=== PATIENT | male | born 1960 | race Caucasian/White ===

== ENCOUNTER 2017-06-22 01:31 | Observation (INO) | payer OTHER ==
[2017-06-22] VITALS (10 sets, daily range): BP systolic 147–197; BP diastolic 68–98; PULSE 57–65; RESP 18–20; TEMP 97.9–98.8; O2SAT 93–100
[2017-06-22 02:39] LABS: ALKALINE PHOSPHATASE 63 U/L (45-117); TOTAL BILIRUBIN ADULT 0.3 MG/DL (0.2-1.0)
[2017-06-22 02:42] LABS: ALT (GPT) 37 U/L (12-78); ANION GAP 9 MEQ/L (5-15); AST (GOT) 29 U/L (15-37); BICARBONATE 26.5 MEQ/L (21.0-32.0); BLOOD UREA NITROGEN 22 MG/DL (7-18); CHLORIDE 107 MEQ/L (98-107); GLOMERULAR FILTRATION RATE 71 ML/MIN (>89); POTASSIUM 3.7 MEQ/L (3.5-5.1); SODIUM (NA) 142 MEQ/L (136-145)
[2017-06-22 02:43] LABS: AUTOMATED NEUTROPHIL # 12.6 TH/MM3 (1.8-7.7); BASOPHIL # 0.1 TH/MM3 (0-0.2); BASOPHIL % 0.4 % (0.0-2.0); EOSINOPHIL % 0.1 % (0.0-4.0); HEMATOCRIT 44.5 % (39.0-51.0); HEMO FLAGS DIFF FINAL; LYMPH % 9.7 % (9.0-44.0); LYMPHOCYTE # 1.5 TH/MM3 (1.0-4.8); MEAN CELL VOLUME 90.1 FL (80.0-100.0); MEAN CORPUSCULAR HEMOGLOBIN 30.6 PG (27.0-34.0); MEAN CORPUSCULAR HGB CONC 33.9 % (32.0-36.0); MONO % 8.1 % (0.0-8.0); NEUT % 81.7 % (16.0-70.0); PLATELET COUNT 182 TH/MM3 (150-450); RED BLOOD COUNT 4.93 MIL/MM3 (4.50-5.90); RED CELL DISTRIBUTION WIDTH 13.4 % (11.6-17.2); WHITE BLOOD COUNT 15.4 TH/MM3 (4.0-11.0)
--- NOTE | 2017-06-22 02:59 | PD ---
HPI Chief Complaint: Flank/Kidney Pain Time Seen by Provider: 02:33 Travel History International Travel<30 days: No Contact w/Intl Traveler<30days: No Traveled to known affect area: No History of Present Illness HPI The patient is a 56 year old male who presents to the [facility] emergency department with a history of chest pain that radiates into his flanks that began at 10:30PM suddenly. He drank water and took tums without relief. The pain is a tight sensation in his chest and a pressure sensation in his back. He reports a history of hypertension. It was drinking alcohol this evening. He had 6-7 drinks this evening. He developed associated cough and congestion tonight. He is coughing up a white to louis mucus. He last had a stress test done years ago. He last used cocaine two months ago. He reports that he smokes 2ppd and drinks alcohol 1 x per week. He denies taking any blood pressure medication. He denies any known history of hyperlipidemia or diabetes. He denies any prior history of heart disease. He denies any FH of CAD. On review of systems otherwise, the patient denies having any known recent fevers, neck pain, cabdominal pain, vomiting, diarrhea, urinary symptoms, or neurologic symptoms. PCP: Dr. Amadou Rivero. He last saw Dr. Rivero years ago. [facility] Past Medical History Narrative Medical The patient's past medical history is significant for gout, htn. Gout: Yes Hypertension: Yes Tetanus Vaccination: > 5 Years Influenza Vaccination: No Past Surgical History Narrative Surgical The patient's past surgical history is significant for left knee surgery. Social History Alcohol Use: Yes (1 time per week.) Tobacco Use: Yes (2 packs per day) Substance Use: Yes (cocaine last 2 months ago.) Allergies-Medications (Allergen,Severity, Reaction): Coded Allergies: No Known Allergies (Unverified , 06/22/17) Reported Meds & Prescriptions Reported Meds & Active Scripts Active No Active Prescriptions or Reported Medications Review of Systems Except as stated in HPI: all other systems reviewed are Neg General / Constitutional: Positive: Chills, No: Fever Eyes: No: Visual changes HENT: Positive: Congestion, No: Headaches Cardiovascular: Positive: Chest Pain or Discomfort Respiratory: Positive: Cough, Shortness of Breath Gastrointestinal: No: Nausea, Vomiting, Diarrhea, Abdominal Pain, Hematochezia , Changes in Bowel Habits (last BM this AM) Genitourinary: No: Urgency, Frequency, Dysuria, Hematuria Musculoskeletal: No: Pain Skin: No Rash Neurologic: No: Weakness, Focal Abnormalities, Change in Mentation, Slurred Speech, Sensory Disturbance Psychiatric: No: Depression Endocrine: No: Polydipsia Hematologic/Lymphatic: No: Easy Bruising Physical Exam Narrative General: The patient is a well-developed well-nourished male in no acute distress. Head and Neck exam: Head is normocephalic atraumatic. Eyes: EOMI, pupils are equal round and reactive to light. Nose: Midline septum with pink mucous membranes Mouth: Dentition unremarkable. Moist mucus membranes. Posterior oropharynx is not erythematous. No tonsillar hypertrophy. Uvula midline. Airway patent. Neck: No palpable lymphadenopathy. No nuchal rigidity. No thyromegaly. Cardiovascular: Regular rate and rhythm without murmurs, gallops, or rubs. Lungs: Clear to auscultation bilaterally. No wheezes, rhonchi, or rales. Abdomen: Soft, without tenderness to palpation in all 4 quadrants of the abdomen. No guarding, rebound, or rigidity. Normal bowel sounds are audible. No tenderness on palpation of McBurney's point. Negative Solorio's sign. Extremities: No clubbing, cyanosis, or edema. 2+ pulses in all 4 extremities. No calf tenderness on palpation. Back: No spinous process tenderness to palpation. The patient reports having bilateral CVA tenderness on palpation worse on the left compared to the right. Neurologic Exam: Grossly nonfocal. Skin Exam: No rash noted. Intact skin that is warm and dry. Data Data Last Documented VS Vital Signs Date Time Temp Pulse Resp B/P (MAP) Pulse Ox O2 Delivery O2 Flow Rate FiO2 06/22/17 03:45 57 20 194/98 (130) 97 Room Air 06/22/17 01:55 98.8 Orders Orders Urinalysis - C+S If Indicated (06/22/17 01:46) Complete Blood Count With Diff (06/22/17 01:46) Comprehensive Metabolic Panel (06/22/17 01:46) Iv Access Insert/Monitor (06/22/17 01:46) Oxygen Administration (06/22/17 01:46) Oximetry (06/22/17 01:46) Lipase (06/22/17 01:46) Electrocardiogram (06/22/17 02:34) Creatine Kinase (Cpk) (06/22/17 02:34) Ckmb (Isoenzyme) Profile (06/22/17 02:34) Troponin I (06/22/17 02:34) B-Type Natriuretic Peptide (06/22/17 02:34) Ct Abd/Pel W/O Iv Contrast (06/22/17 02:34) Sodium Chlor 0.9% 1000 Ml Inj (Ns 1000 M (06/22/17 03:15) Morphine Inj (Morphine Inj) (06/22/17 03:15) Ondansetron Inj (Zofran Inj) (06/22/17 03:15) Nitroglycerin 2% Oint (Nitroglycerin 2% (06/22/17 03:15) Aspirin Chew (Aspirin Chew) (06/22/17 03:15) Pantoprazole Inj (Protonix Inj) (06/22/17 03:15) Chest, Single Ap (06/22/17 03:03) CKMB (06/22/17 03:00) CKMB% (06/22/17 03:00) Admit Order (Ed Use Only) (06/22/17 04:06) Labs Laboratory Tests Test 06/22/17 01:50 06/22/17 02:30 06/22/17 03:00 Blood Urea Nitrogen 22 MG/DL Creatinine 1.07 MG/DL Random Glucose 114 MG/DL Total Protein 7.4 GM/DL Albumin 3.7 GM/DL Calcium Level 8.2 MG/DL Alkaline Phosphatase 63 U/L Aspartate Amino Transf (AST/SGOT) 29 U/L Alanine Aminotransferase (ALT/SGPT) 37 U/L Total Bilirubin 0.3 MG/DL Sodium Level 142 MEQ/L Potassium Level 3.7 MEQ/L Chloride Level 107 MEQ/L Carbon Dioxide Level 26.5 MEQ/L Anion Gap 9 MEQ/L Estimat Glomerular Filtration Rate 71 ML/MIN Lipase 101 U/L White Blood Count 15.4 TH/MM3 Red Blood Count 4.93 MIL/MM3 Hemoglobin 15.1 GM/DL Hematocrit 44.5 % Mean Corpuscular Volume 90.1 FL Mean Corpuscular Hemoglobin 30.6 PG Mean Corpuscular Hemoglobin Concent 33.9 % Red Cell Distribution Width 13.4 % Platelet Count 182 TH/MM3 Mean Platelet Volume 8.0 FL Neutrophils (%) (Auto) 81.7 % Lymphocytes (%) (Auto) 9.7 % Monocytes (%) (Auto) 8.1 % Eosinophils (%) (Auto) 0.1 % Basophils (%) (Auto) 0.4 % Neutrophils # (Auto) 12.6 TH/MM3 Lymphocytes # (Auto) 1.5 TH/MM3 Monocytes # (Auto) 1.2 TH/MM3 Eosinophils # (Auto) 0.0 TH/MM3 Basophils # (Auto) 0.1 TH/MM3 CBC Comment DIFF FINAL Differential Comment Total Creatine Kinase 410 U/L Creatine Kinase MB 7.4 NG/ML Creatine Kinase MB % 1.8 % Troponin I LESS THAN 0.02 NG/ML B-Type Natriuretic Peptide 11 PG/ML MDM Medical Decision Making Medical Screen Exam Complete: Yes Emergency Medical Condition: Yes Medical Record Reviewed: Yes Interpretation(s) Last Impressions Chest X-Ray 06/22/17 0303 Signed Impressions: Service Date/Time: Thursday, June 22, 2017 03:23 - CONCLUSION: No evidence of acute cardiopulmonary disease. Chencho Rodriguez MD Abdomen/Pelvis CT 06/22/17 0234 Signed Impressions: Service Date/Time: Thursday, June 22, 2017 03:15 - CONCLUSION: 1. No stones , obstructive uropathy or other acute abnormality. 2. Mild sigmoid colon diverticulosis without diverticulitis. Chencho Rodriguez MD Differential Diagnosis Kidney stone, versus pyelonephritis, versus pancreatitis, versus abdominal aortic aneurysm, versus dissecting aorta, versus acute coronary syndrome Narrative Course During the course of the patients emergency department visit, the patients history, examination, and differential diagnosis were reviewed with the patient. The patient had IV access obtained and blood work sent for analysis. The patient was placed on a quality systems engineer with oximetry and blood pressure monitoring. An ECG was done on arrival. The patient's ECG shows a sinus rhythm with sinus arrhythmia with a heart rate of 60, no acute ST segment elevation or depression, T waves are inverted in V1. QRS duration and 97 ms, QTC 411 ms. The patient was initially provided Protonix 40 mg IV, aspirin 324 mg by mouth 1 , nitroglycerin 1 inch of paste to the chest wall, morphine 4 mg IV, Zofran 4 mg IV. Normal saline was started at 1 L IV fluid bolus. The patients laboratory studies were reviewed and remarkable for a white count of 15.4, hemoglobin 15.1, platelets 182 with 81.7 neutrophils, monocytes 8.1. CMP is remarkable for a BUN of 22, glucose 114, lipase 101, CPK 410, MB percent 1.8, troponin I less than 0.02. Urinalysis is unremarkable, urine drug screen is positive for opiates, alcohol level less than 3 Radiology studies were reviewed and remarkable for a chest x-ray that shows no evidence of acute cardiopulmonary disease, CT scan of the abdomen and pelvis shows no stones or obstructive uropathy or other acute abnormality, mild sigmoid colon diverticulosis without diverticulitis. Normal-appearing aorta. The patients results were discussed with the patient, including the plan of care. I explained that further testing and/ or monitoring is indicated based on the patients history, examination, and/ or laboratory findings. Therefore, I recommended admission for additional evaluation. The patient expressed understanding and was agreeable with this plan. The patient was admitted to the hospital in stable condition and sent to a bed under the care of the chest pain center. Diagnosis Primary Impression: Chest pain, rule out acute myocardial infarction Admitting Information Admitting Physician Requests: Observation Scripts No Active Prescriptions or Reported Meds Nayeli Webb MD Jun 22, 2017 02:59
[2017-06-22] MEDS ORDERED: SODIUM CHLOR 0.9% 1000 ML INJ 1,000 ML IV ONE (03:15)
[2017-06-22] MEDS ORDERED: ONDANSETRON HCL 4 MG/2 ML VIAL IV PUSH ONE (03:15)
[2017-06-22] MEDS ORDERED: ASPIRIN 81 MG CHEW TAB CHEW ONE (03:15)
[2017-06-22] MEDS ORDERED: MORPHINE SULFATE 4 MG/ML INJ IV PUSH ONE (03:15)
[2017-06-22] MEDS ORDERED: PANTOPRAZOLE SODIUM 40 MG VIAL IV PUSH ONE (03:15)
[2017-06-22] MEDS ORDERED: NITROGLYCERIN 2% OINT 1 GM PACKET TOPICAL ONE (03:15)
[2017-06-22 03:39] LABS: CREATINE KINASE 410 U/L (39-308)
--- NOTE | 2017-06-22 03:41 | RADRPT ---
EXAM DATE/TIME: 06/22/2017 03:15 [facility] COMPARISON: No previous studies available for comparison. INDICATIONS : Bilateral flank pain. ORAL CONTRAST: No oral contrast ingested. RADIATION DOSE: 13.04 CTDIvol (mGy) MEDICAL HISTORY : Hypertension. Gout. SURGICAL HISTORY : None. ENCOUNTER: Initial ACUITY: 1 day PAIN SCALE: 10/10 LOCATION: Bilateral flank TECHNIQUE: Volumetric scanning of the abdomen and pelvis was performed. Using automated exposure control and ad justment of the mA and/or kV according to patient size, radiation dose was kept as low as reasonably achievable to obtain optimal diagnostic quality images. DICOM format image data is available electro nically for review and comparison. FINDINGS: LOWER LUNGS: The visualized lower lungs are clear. LIVER: Homogeneous density without lesion. There is no dilation of the biliary tree. No calcified gallston es. SPLEEN: Normal size without lesion. PANCREAS: Within normal limits. KIDNEYS: Normal in size and shape. There is no mass, stone, or hydronephrosis. ADRENAL GLANDS: Within normal limits. VASCULAR: There is no aortic aneurysm. BOWEL/MESENTERY: There is mild diverticulosis of the sigmoid colon. No inflammatory changes are demonstrated. No bowel obstruction. Appendix is well-visualized, normal. There is no free fluid or free air. ABDOMINAL WALL: Within normal limits. RETROPERITONEUM: There is no lymphadenopathy. BLADDER: No wall thickening or mass. REPRODUCTIVE: Within normal limits. INGUINAL: There is no lymphadenopathy or hernia. MUSCULOSKELETAL: No acute bony abnormality demonstrated. CONCLUSION: 1. No stones, obstructive uropathy or other acute abnormality. 2. Mild sigmoid colon diverticulosis without diverticulitis. Chencho Rodriguez MD on June 22, 2017 at 3:36 Board Certified Radiologist. This report was verified electronically.
--- NOTE | 2017-06-22 03:41 | RADRPT ---
EXAM DATE/TIME: 06/22/2017 03:23 [facility] COMPARISON: No previous studies available for comparison. INDICATIONS : Short of breath. MEDICAL HISTORY : None. SURGICAL HISTORY : None. ENCOUNTER: Initial ACUITY: 1 day PAIN SCORE: 0/10 LOCATION: Bilateral chest FINDINGS: A single view of the chest demonstrates the lungs to be symmetrically aerated without evidence of mas s, infiltrate or effusion. The cardiomediastinal contours are unremarkable. Osseous structures are intact. CONCLUSION: No evidence of acute cardiopulmonary disease. Chencho Rodriguez MD on June 22, 2017 at 3:40 Board Certified Radiologist. This report was verified electronically.
[2017-06-22 03:51] LABS: CKMB 7.4 NG/ML (0.5-3.6)
[2017-06-22] MEDS ORDERED: SODIUM CHLORIDE 0.9% FLUSH 10 ML FLUSH IV FLUSH PRN (04:45)
[2017-06-22] MEDS ORDERED: ONDANSETRON HCL 4 MG/2 ML VIAL IV PUSH PRN (04:45)
[2017-06-22] MEDS ORDERED: ACETAMINOPHEN/HYDROcodone 325 MG/7.5 MG TAB PO PRN (04:45)
[2017-06-22] MEDS ORDERED: LORazepam 2 MG/ML VIAL IV PUSH ONE (06:00)
[2017-06-22 06:28] LABS: BLOOD, URINE TRACE (NEG); COMMENT (UR) CULT NOT INDICATED; CULTURE IF INDICATED CULT NOT INDICATED; GLUCOSE,URINE NEG (NEG); HYALINE CAST, URINE 7 /lpf (RARE); KETONE, URINE NEG (NEG); MUCUS URINE FEW /lpf (OCC); NITRITE,URINE NEG (NEG); PH, URINE 5.5 (5.0-8.5); URINE COLOR YELLOW (YELLW/STRAW)
[2017-06-22 06:44] LABS: CKMB 6.7 NG/ML (0.5-3.6)
[2017-06-22] MEDS ORDERED: cloNIDine HCL 0.1 MG TAB PO ONE (08:00)
--- NOTE | 2017-06-22 08:16 | HHI.HP ---
HPI Primary Care Physician No Primary Care Physician Chief Complaint Chest pain History of Present Illness This is a 56-year-old male that presents to ED via ambulance with a complaint of chest discomfort. States it began 10:30 last evening while drinking at a bar. He states he was bar hopping throughout the evening. Estimates he had at least 3-4 shots of vodka and at least 4-6 beers. Describes the discomfort as a pressure in the center of his chest without radiation. Maybe a little shortness of breath. No nausea or vomiting. No diaphoresis. He has had a cough but states he has had that for a long time and to reset to smoking 2 pack of cigarettes daily. His cough is been nonproductive. No fevers or chills. Denies abdominal pain. Denies recent illness. Denies recent travel. Denies history of CAD. States he had a stress test many years ago. His PCP is Dr. Rviero however he states he has not seen him in quite some time. States at one time he was told he had borderline hypertension but cannot recall ever being placed on medication. (Cayetano Sanchez) Review of Systems General: Patient denies fevers, chills recent, and recent travel HEENT: Patient denies headache, sore throat, difficulty swallowing. Cardiovascular: Has the chest discomfort as mentioned above. Denies sensation of heart beating rapidly or irregularly. No syncope. Denies diaphoresis. Respiratory: He was little short of breath initially. Denies inspirational chest discomfort. States he has had a chronic nonproductive cough for as long as he remembers, states it is his smoker's cough. GI: Patient denies nausea, vomiting, diarrhea, abdominal pain, bloody stools. Musculoskeletal: Patient denies joint pain or edema. Denies calf pain or edema. Neurovascular: Patient denies numbness, tingling, weakness in extremities. Denies headache. Endocrine: Denies polyuria and polydipsia. Hematologic: Denies easy bruising. Skin: Denies rash or itching. (Cayetano Sanchez) Past Family Social History Allergies: Coded Allergies: No Known Allergies (Unverified , 06/22/17) Past Medical History Tobacco abuse. States he was told he had borderline hypertension but was never prescribed medication. Denies hyperlipidemia diabetes and known CAD. Past Surgical History Knee surgery. Reported Medications Reported Meds & Active Scripts Active No Active Prescriptions or Reported Medications Active Ordered Medications Current Medications Medications (Trade) Dose Ordered Sig/Mariana Route Start Time Stop Time Status Last Admin (NS Flush) 2 ml UNSCH PRN IV FLUSH 06/22/17 04:45 (NS Flush) 2 ml BID IV FLUSH 06/22/17 09:00 ([place] 7.5-325 Mg) 1 tab Q4H PRN PO 06/22/17 04:45 06/22/17 06:15 (Zofran Inj) 4 mg Q6H PRN IV PUSH 06/22/17 04:45 (Protonix) 40 mg DAILY PO 06/22/17 09:00 (Catapres) 0.1 mg NOW ONCE PO 06/22/17 08:00 06/22/17 08:01 UNV Family History Denies family history of CAD. Social History Smokes 2 packs a day for more than 30 years. States he drinks alcohol when he feels like it. It can be once a week once a month, no pattern. He admits to drinking at least 4 vodkas last night at least 4-6 beers last night. Denies illicit drug use. (Cayetano Sanchez) Physical Exam Vital Signs Vital Signs Date Time Temp Pulse Resp B/P (MAP) Pulse Ox O2 Delivery O2 Flow Rate FiO2 06/22/17 07:32 57 18 06/22/17 07:32 59 18 170/75 (106) 96 06/22/17 06:33 59 20 170/75 (106) 98 Nasal Cannula 2.00 06/22/17 05:48 100 Nasal Cannula 2.00 06/22/17 05:48 63 20 195/68 (110) 100 Nasal Cannula 2.00 06/22/17 05:00 21 06/22/17 03:45 57 20 194/98 (130) 97 Room Air 06/22/17 03:25 61 20 197/97 (130) 100 Room Air 06/22/17 02:01 20 06/22/17 01:55 98.8 62 20 177/78 (111) 06/22/17 01:54 20 99 Room Air Physical Exam GENERAL: This is a well-nourished, well-developed patient, in no apparent distress. Patient speaks in clear complete sentences. Patient is pleasant. HEENT: Head is atraumatic and normocephalic. Neck is supple without lymphadenopathy and trachea is midline. No JVD or carotid bruits. CARDIOVASCULAR: Regular rate and rhythm without murmurs, gallops, or rubs. RESPIRATORY: Clear to auscultation. Breath sounds equal bilaterally. No wheezes , rales, or rhonchi. Chest wall is tender over the sternum which reproduces and worsens the discomfort he has been having since last evening. No use of accessory muscles. GASTROINTESTINAL: Abdomen is nontender, nondistended. Abdomen soft. No obvious pulsatile mass or bruit. No CVA tenderness. Strong femoral pulses bilaterally. Normal bowel sounds in all quadrants. MUSCULOSKELETAL: Patient is moving upper and lower extremities freely. No calf tenderness or edema, no Homans sign. Strong pulses in upper and lower extremities. NEUROLOGICAL: Patient is alert and oriented. Cranial nerves 2-12 are grossly intact. No focal deficits and speech is clear. SKIN: No rash and turgor is normal. Laboratory Laboratory Tests Test 06/22/17 01:50 06/22/17 02:30 06/22/17 03:00 06/22/17 05:35 Blood Urea Nitrogen 22 Creatinine 1.07 Random Glucose 114 Total Protein 7.4 Albumin 3.7 Calcium Level 8.2 Alkaline Phosphatase 63 Aspartate Amino Transf (AST/SGOT) 29 Alanine Aminotransferase (ALT/SGPT) 37 Total Bilirubin 0.3 Sodium Level 142 Potassium Level 3.7 Chloride Level 107 Carbon Dioxide Level 26.5 Anion Gap 9 Estimat Glomerular Filtration Rate 71 Lipase 101 White Blood Count 15.4 Red Blood Count 4.93 Hemoglobin 15.1 Hematocrit 44.5 Mean Corpuscular Volume 90.1 Mean Corpuscular Hemoglobin 30.6 Mean Corpuscular Hemoglobin Concent 33.9 Red Cell Distribution Width 13.4 Platelet Count 182 Mean Platelet Volume 8.0 Neutrophils (%) (Auto) 81.7 Lymphocytes (%) (Auto) 9.7 Monocytes (%) (Auto) 8.1 Eosinophils (%) (Auto) 0.1 Basophils (%) (Auto) 0.4 Neutrophils # (Auto) 12.6 Lymphocytes # (Auto) 1.5 Monocytes # (Auto) 1.2 Eosinophils # (Auto) 0.0 Basophils # (Auto) 0.1 CBC Comment DIFF FINAL Differential Comment Total Creatine Kinase 410 359 Creatine Kinase MB 7.4 6.7 Creatine Kinase MB % 1.8 1.9 Troponin I LESS THAN 0.02 0.02 B-Type Natriuretic Peptide 11 Ethyl Alcohol Level LESS THAN 3 Test 06/22/17 05:55 06/22/17 06:30 Urine Color YELLOW Urine Turbidity CLEAR Urine pH 5.5 Urine Specific [place] 1.027 Urine Protein TRACE Urine Glucose (UA) NEG Urine Ketones NEG Urine Occult Blood TRACE Urine Nitrite NEG Urine Bilirubin NEG Urine Urobilinogen LESS THAN 2.0 Urine Leukocyte Esterase NEG Urine RBC 3 Urine WBC 4 Urine Hyaline Casts 7 Urine Mucus FEW Microscopic Urinalysis Comment CULT NOT INDICATED Urine Opiates Screen POS Urine Barbiturates Screen NEG Urine Amphetamines Screen NEG Urine Benzodiazepines Screen NEG Urine Cocaine Screen NEG Urine Cannabinoids Screen NEG (Cayetano Sanchez) Result Diagram: 06/22/17 0230 06/22/17 0150 Imaging Last 48 hours Impressions Chest X-Ray 06/22/17 0303 Signed Impressions: Service Date/Time: Thursday, June 22, 2017 03:23 - CONCLUSION: No evidence of acute cardiopulmonary disease. Chencho Rodriguez MD Abdomen/Pelvis CT 06/22/17 0234 Signed Impressions: Service Date/Time: Thursday, June 22, 2017 03:15 - CONCLUSION: 1. No stones , obstructive uropathy or other acute abnormality. 2. Mild sigmoid colon diverticulosis without diverticulitis. Chencho Rodriguez MD Course EKGs have sinus bradycardia to sinus arrhythmia without significant ST segment depressions or elevations. (Cayetano Sanchez) Caprini VTE Risk Assessment Caprini VTE Risk Assessment: No/Low Risk (score <= 1) Caprini Risk Assessment Model Point Value = 1 Point Value = 2 Point Value = 3 Point Value = 5 Age 41-60 Minor surgery BMI > 25 kg/m2 Swollen legs Varicose veins or History of unexplained or recurrent spontaneous Oral contraceptives or hormone replacement Sepsis (< 1 month) Serious lung disease, including pneumonia (< 1 month) Abnormal pulmonary function Acute myocardial infarction Congestive heart failure (< 1 month) History of inflammatory bowel disease Medical patient at bed rest Age 61-74 Arthroscopic surgery Major open surgery (> 45 min) Laparoscopic surgery (> 45 min) Malignancy Confined to bed (> 72 hours) Immobilizing plaster cast Central venous access Age >= 75 History of VTE Family history of VTE Factor V Leiden Prothrombin [id number] Lupus anticoagulant Anticardiolipin antibodies Elevated serum homocysteine Heparin-induced thrombocytopenia Other congenital or acquired thrombophilia Stroke (< 1 month) Elective arthroplasty Hip, pelvis, or leg fracture Acute spinal cord injury (< 1 month) Prophylaxis Regimen Total Risk Factor Score Risk Level Prophylaxis Regimen 0-1 Low Early ambulation 2 Moderate Order ONE of the following: *Sequential Compression Device (SCD) *Heparin 5000 units SQ BID 3-4 Higher Order ONE of the following medications: *Heparin 5000 units SQ TID *Enoxaparin/Lovenox 40 mg SQ daily (WT < 150 kg, CrCl > 30 mL/min) *Enoxaparin/Lovenox 30 mg SQ daily (WT < 150 kg, CrCl > 10-29 mL/min) *Enoxaparin/Lovenox 30 mg SQ BID (WT < 150 kg, CrCl > 30 mL/min) AND/OR *Sequential Compression Device (SCD) 5 or more Highest Order ONE of the following medications: *Heparin 5000 units SQ TID (Preferred with Epidurals) *Enoxaparin/Lovenox 40 mg SQ daily (WT < 150 kg, CrCl > 30 mL/min) *Enoxaparin/Lovenox 30 mg SQ daily (WT < 150 kg, CrCl > 10-29 mL/min) *Enoxaparin/Lovenox 30 mg SQ BID (WT < 150 kg, CrCl > 30 mL/min) AND *Sequential Compression Device (SCD) (Cayetano Sanchez) Assessment and Plan Assessment and Plan * Atypical chest pain: Patient will continue to have serial cardiac enzymes and EKGs for ruling out purposes. He was seen by Dr. Messer cardiology in the chest pain center and will be discharged home if he rules out with serial cardiac enzymes and EKGs. His blood pressure was elevated, will continue to monitor. He should keep a journal discuss with PCP. * Tobacco abuse: Patient has been counseled on importance of smoking cessation. * Alcohol abuse: Patient has been counseled on the importance of decreasing alcohol intake. Patient is stable at this time. He is agreeable to this plan. (Cayetano Sanchez) Assessment and Plan Atypical chest pain- felt to be musculoskeletal as it was reproducible and worsened with palpation. ECG and cardiac enzymes do not suggest ischemia. -No other overt etiology present, beyond musculoskeletal pain that was relieved with morphine. BP no reasonable, CXR without infiltrate or widened mediastinum, CT noted Elevated BP-> follow up BP 147/74 (Maida Mseser MD) Cayetano Sanchez Jun 22, 2017 08:16 Maida Messer MD Jun 22, 2017 16:34
[2017-06-22] MEDS ORDERED: SODIUM CHLORIDE 0.9% FLUSH 10 ML FLUSH IV FLUSH SCH (09:00)
[2017-06-22] MEDS ORDERED: PANTOPRAZOLE SOD 40 MG DELAYED RELEASE TAB PO SCH (09:00)
[2017-06-22 09:54] LABS: CREATINE KINASE 303 U/L (39-308)
[2017-06-22 10:06] LABS: CKMB 5.8 NG/ML (0.5-3.6)
--- NOTE | 2017-06-22 10:23 | HHI.DCPOC ---
Discharge Care Plan Diagnosis: (1) Chest pain, atypical (2) Alcohol abuse (3) Tobacco abuse Goals to Promote Your Health * To prevent worsening of your condition and complications * To maintain your health at the optimal level Directions to Meet Your Goals Take your medications as prescribed Follow your dietary instruction Follow activity as directed Keep your appointments as scheduled Take your immunizations and boosters as scheduled If your symptoms worsen call your PCP, if no PCP go to Urgent Care Center or Emergency Room Smoking is Dangerous to Your Health. Avoid second hand smoke Call the 24-hour hour crisis hotline for domestic abuse at Cayetano Sanchez Jun 22, 2017 10:23
--- NOTE | 2017-06-22 16:15 | EKG ---
Date Performed: 06/22/2017 Time Performed: 03:38:00 PTAGE: 56 years EKG: Sinus rhythm WITH SINUS ARRHYTHMIA NORMAL ECG NO PREVIOUS TRACING DOCTOR: Maida Messer Interpretating Date/Time 06/22/2017 16:13:27
--- NOTE | 2017-06-22 16:15 | EKG ---
Date Performed: 06/22/2017 Time Performed: 08:52:38 PTAGE: 56 years EKG: SINUS BRADYCARDIA BORDERLINE ECG Since PREVIOUS TRACING , no significant change noted PREVIOUS TRACIN06/22/2017 05.40 DOCTOR: Maida Messer Interpretating Date/Time 06/22/2017 16:14:08
--- NOTE | 2017-06-22 16:15 | EKG ---
Date Performed: 06/22/2017 Time Performed: 05:40:04 PTAGE: 56 years EKG: SINUS BRADYCARDIA BORDERLINE ECG Since PREVIOUS TRACING , no significant change noted DOCTOR: Maida Messer Interpretating Date/Time 06/22/2017 16:14:29
== END 2017-06-22 11:43 | disposition home or self-care (01) ==
LOC: NEPC 01:31 → NEDA 04:07 → NEPGCP 08:04
PROVIDERS: ADMIT Internal Medicine Cardiovascular Disease; ATTEND Internal Medicine Cardiovascular Disease
DX: R07.89 Other chest pain (principal); F10.10 Alcohol abuse, uncomplicated; R05 Cough; R00.1 Bradycardia, unspecified; R06.02 Shortness of breath; I10 Essential (primary) hypertension; K57.90 Diverticulosis of intestine, part unspecified, without perforation or abscess without bleeding; F17.210 Nicotine dependence, cigarettes, uncomplicated
CPT/HCPCS: 71010; 74176; 80053; 80307; 81001; 82550; 82552; 83690; 83880; 84484; 85025; 93005; 96361; 96374; 96375; C9113; G0378; J2060; J2270; J2405; J7030

== ENCOUNTER 2017-06-22 12:46 | Emergency (ER) | payer OTHER ==
[~2017-06-22] VITALS: Ht 185.4 cm; Wt 105.0 kg
[2017-06-22 12:46] VITALS: BP 0/0; PULSE 0; RESP 0
[2017-06-22] MEDS ORDERED: SODIUM BICARBONATE 8.4% INJ 50 MEQ/50 ML SYR IV PUSH ONE (12:47)
[2017-06-22] MEDS ORDERED: EPINEPHrine HCL (1:10,000) 1 MG/10 ML SYRINGE IV ONE (12:47)
--- NOTE | 2017-06-22 14:29 | PD ---
HPI Chief Complaint: Code Blue Time Seen by Provider: 13:11 Travel History International Travel<30 days: No Contact w/Intl Traveler<30days: No Traveled to known affect area: No History of Present Illness HPI 56-year-old male was brought in to the ER by EMS with active CPR en route. As per the paramedics patient was a witnessed arrest. CPR was started by the bystander right away and 911 was called. They tried to intubate but were unsuccessful. Patient had received 4 rounds of epinephrine en route and CPR was conducted as per ACLS protocol. Patient never had a pulse. He remained asystole and occasional PEA on the monitor. When he arrived to continue to be pulseless and CPR was resumed. We were told that family was on their way. Patient was seen by the ER for chest pain. He was admitted at the chest pain center and discharge this morning. Patient is obviously is unable to give any history. PFSH Past Medical History Narrative Medical List of his past medical, surgical, social and family history is reviewed from the nursing note. Gout: Yes Hypertension: Yes Social History Alcohol Use: Yes (1 time per week.) Tobacco Use: Yes (2 packs per day) Substance Use: Yes (cocaine last 2 months ago.) Allergies-Medications (Allergen,Severity, Reaction): Coded Allergies: No Known Allergies (Unverified , 06/22/17) Comments No known drug allergies. Reported Meds & Prescriptions Reported Meds & Active Scripts Active No Active Prescriptions or Reported Medications Narrative Medication List of his home medications reviewed from the nursing note. Review of Systems Except as stated in HPI: all other systems reviewed are Neg Physical Exam Narrative GENERAL: Unresponsive, CPR in progress SKIN: Focused skin assessment warm/dry. Pale HEAD: Atraumatic. Normocephalic. EYES: 3 mm, round, equal and unresponsive to light. No scleral icterus. No injection or drainage. ENT: No nasal bleeding or discharge. Mucous membranes pink and moist. NECK: Trachea midline. No JVD. CARDIOVASCULAR: Pulseless RESPIRATORY: No spontaneous respirations GASTROINTESTINAL: Abdomen soft, non-tender, nondistended. Hepatic and splenic margins not palpable. MUSCULOSKELETAL: No obvious deformities. No clubbing. No cyanosis. No edema. NEUROLOGICAL: GCS of 3 PSYCHIATRIC: Unable to assess Data Data Last Documented VS Vital Signs Date Time Temp Pulse Resp B/P (MAP) Pulse Ox O2 Delivery O2 Flow Rate FiO2 06/22/17 12:46 15.00 100 06/22/17 12:46 0 0 0/0 (0) Orders Orders Epinephrine (1:10,000) Inj (Epinephrine (06/22/17 12:47) Sodium Bicarbonate 8.4% Inj (Sodium Bica (06/22/17 12:47) MDM Medical Decision Making Medical Screen Exam Complete: Yes Emergency Medical Condition: Yes Medical Record Reviewed: Yes Differential Diagnosis Massive IL, massive PE, cardiorespiratory arrest Narrative Course 1:30 PM patient was intubated by me upon arrival. Please refer to my procedure note. Good quality CPR was continued for 17 minutes in the ER. Patient received multiple doses of epinephrine. Please refer to the code sheet for the exact time and doses. Patient never had return of spontaneous circulation. Eventually given the futility of the code patient was pronounced. Total time from the arrest was approximately 45 minutes. Patient was pronounced by me at 1303. I went and spoke with patient's and his friends later to give them the news and answered all the questions to the best of my ability. Procedures Procedure Narrative The following procedure was performed emergently: INTUBATION: The patient was put in optimal position for the procedure. Rapid sequence intubation was initiated by me using 0 milligrams of etomidate IV and 0 milligrams of 0 IV. The patient was intubated with a 7.5 cuffed endotracheal tube. Tube placement was confirmed by visualization of the tube and balloon passing through the cords, capnometry and subsequent chest x-ray. Breath sounds were equal and well aerated bilaterally postintubation. No breath sounds over stomach. Patient tolerated procedure well. EKG Prior to Arrival: No Diagnosis Primary Impression: Cardiac arrest Scripts No Active Prescriptions or Reported Meds Disposition: 20 Condition: Alexsandra Steiner MD Jun 22, 2017 14:29
== END 2017-06-22 16:16 | disposition expired ==
LOC: NEPE 12:46 → NEPB 16:16
DX: I46.9 Cardiac arrest, cause unspecified (principal)
CPT/HCPCS: 31500; 99285; J0171